=== PATIENT | male | born 1965 | race Caucasian/White ===

== ENCOUNTER 2021-07-17 10:57 | Inpatient (IN) | payer OTHER ==
[~2021-07-17] VITALS: Ht 160 cm; Wt 67.3 kg
[2021-07-17] MEDS ORDERED: ONDANSETRON HCL 4MG/2ML INJ IV ONE (11:30)
[2021-07-17] MEDS ORDERED: SODIUM CHLORIDE 0.9% 1,000 ML IV ONE (11:30)
[2021-07-17 12:21] LABS: BASOPHILS % 0.2 % (0.0-2.0); HEMATOCRIT. 46.7 % (42.0-52.0); HEMOGLOBIN. 15.6 g/dL (14.0-18.0); MEAN CORPUSCULAR HEMOGLOBIN 29.5 pg (28.0-32.0); MEAN CORPUSCULAR VOLUME 88.7 fL (80.0-94.0); MEAN PLATELET VOLUME 8.3 fl (7.4-10.4); MONOCYTES % 5.3 % (2.0-8.0); NEUTROPHILS % 86.5 % (40.0-76.0); PLATELET 176 x1000/uL (130-400); RED BLOOD CELL COUNT 5.27 mill/uL (4.7-6.1); RED CELL DISTRIBUTION WIDTH 12.7 % (11.6-14.6)
[2021-07-17 12:26] LABS: CHLORIDE 97 mEq/L (98-107)
[2021-07-17] MEDS ORDERED: SODIUM CHLORIDE 0.9% 1000ML BAG (SEPSIS BOLUS) IV ONE (13:00)
[2021-07-17] MEDS ORDERED: PIPERACILLIN/TAZ 3.375G PREMIX 50 ML IV ONE (13:00)
[2021-07-17] MEDS ORDERED: DEXAMETHASONE 10 MG/ML VIAL IV ONE (14:15)
[2021-07-17] MEDS ORDERED: DIPHENHYDRAMINE 50MG/ML VIAL IV PRN (14:30)
[2021-07-17] MEDS ORDERED: ONDANSETRON HCL 4MG/2ML INJ IV PRN (14:30)
[2021-07-17] MEDS ORDERED: CLONIDINE 0.1MG TABLET PO PRN (14:30)
[2021-07-17] MEDS ORDERED: AZITHROMYCIN 500MG/250ML 250 ML IV NR (15:00)
[2021-07-17] MEDS ORDERED: CEFTRIAXONE 1 G PREMIX 50 ML IV NR (15:00)
[2021-07-17] MEDS: ACETAMINOPHEN 325MG TABLET PO PRN ×2 (15:54→21:25)
[2021-07-17] MEDS ORDERED: ENOXAPARIN 40MG/0.4ML SYR SUBCUT SCH (16:00)
[2021-07-17 16:43] VITALS: BP 118/72
[2021-07-17 20:00] VITALS: BP 106/64
[2021-07-17] MEDS ORDERED: AZITHROMYCIN 500 MG in DEXT 5% WATER 250 ML IV NR (21:01)
[2021-07-17] MEDS: ENOXAPARIN 40MG/0.4ML SYR SUBCUT SCH (21:26)
[2021-07-17] MEDS: GUAIFENESIN 600MG ER TABLET PO SCH (21:26)
[2021-07-17] MEDS ORDERED: CEFTRIAXONE 1,000 MG in DEXTROSE 5% WATER 50 ML IV NR (22:00)
[2021-07-18] VITALS: BP 99/55
[2021-07-18 04:00] VITALS: BP 104/68
[2021-07-18 08:00] VITALS: BP 106/66
[2021-07-18 08:27] LABS: HEMATOCRIT. 44.1 % (42.0-52.0); HEMOGLOBIN. 14.8 g/dL (14.0-18.0); MEAN CORPUSCULAR HEMOGLOBIN 29.9 pg (28.0-32.0); MEAN CORPUSCULAR VOLUME 89.1 fL (80.0-94.0); MEAN PLATELET VOLUME 8.2 fl (7.4-10.4); PLATELET 173 x1000/uL (130-400); RED BLOOD CELL COUNT 4.96 mill/uL (4.7-6.1); RED CELL DISTRIBUTION WIDTH 12.6 % (11.6-14.6)
[2021-07-18] MEDS: GUAIFENESIN 600MG ER TABLET PO SCH ×2 (08:28→20:25)
[2021-07-18] MEDS: DEXAMETHASONE 10 MG/ML VIAL IV SCH (08:28)
[2021-07-18 08:41] LABS: CHLORIDE 107 mEq/L (98-107)
[2021-07-18] MEDS ORDERED: AZITHROMYCIN 500 MG in DEXT 5% WATER 250 ML IV SCH (09:00)
[2021-07-18] MEDS: CEFTRIAXONE 1,000 MG in DEXTROSE 5% WATER 50 ML IV SCH (09:42)
[2021-07-18 12:00] VITALS: BP 95/60
[2021-07-18] MEDS ORDERED: POLYETHYLENE GLYCOL 3350 (17GM) 1 DOSE PACK PO PRN (12:00)
[2021-07-18 13:45] LABS: PLATELET ESTIMATE NORMAL
[2021-07-18 16:00] VITALS: BP 99/66
[2021-07-18 20:00] VITALS: BP 103/67
[2021-07-18] MEDS: ENOXAPARIN 40MG/0.4ML SYR SUBCUT SCH (20:26)
[2021-07-18] MEDS: ACETAMINOPHEN 325MG TABLET PO PRN (20:33)
[2021-07-19] VITALS: BP 114/72
[2021-07-19 04:00] VITALS: BP 103/54
[2021-07-19 07:57] LABS: INR 1.1; PROTHROMBIN TIME 11.6 sec (9.6-11.0)
[2021-07-19 08:00] VITALS: BP_SYST 52
[2021-07-19] MEDS: GUAIFENESIN 600MG ER TABLET PO SCH ×2 (09:08→21:06)
[2021-07-19] MEDS: AZITHROMYCIN 500 MG in DEXT 5% WATER 250 ML IV SCH (09:08)
[2021-07-19] MEDS: DEXAMETHASONE 10 MG/ML VIAL IV SCH (09:08)
[2021-07-19] MEDS: CEFTRIAXONE 1,000 MG in DEXTROSE 5% WATER 50 ML IV SCH (10:52)
[2021-07-19 12:00] VITALS: BP 104/70
[2021-07-19] MEDS ORDERED: ZOLPIDEM TARTRATE 5MG TABLET PO PRN (12:30)
[2021-07-19 16:00] VITALS: BP 107/65
[2021-07-19 20:00] VITALS: BP 93/55
[2021-07-19] MEDS: ENOXAPARIN 40MG/0.4ML SYR SUBCUT SCH (21:06)
[2021-07-20] VITALS: BP 99/60
[2021-07-20 04:00] VITALS: BP 106/66
[2021-07-20 07:17] LABS: HEMATOCRIT. 43.5 % (42.0-52.0); HEMOGLOBIN. 14.5 g/dL (14.0-18.0); MEAN CORPUSCULAR HEMOGLOBIN 29.5 pg (28.0-32.0); MEAN CORPUSCULAR VOLUME 88.4 fL (80.0-94.0); MEAN PLATELET VOLUME 8.2 fl (7.4-10.4); PLATELET 262 x1000/uL (130-400); RED BLOOD CELL COUNT 4.92 mill/uL (4.7-6.1)
[2021-07-20 07:36] LABS: CHLORIDE 109 mEq/L (98-107)
[2021-07-20 08:00] VITALS: BP 90/60
[2021-07-20] MEDS: AZITHROMYCIN 500 MG in DEXT 5% WATER 250 ML IV SCH (08:54)
[2021-07-20] MEDS: GUAIFENESIN 600MG ER TABLET PO SCH (08:55)
[2021-07-20] MEDS: DEXAMETHASONE 10 MG/ML VIAL IV SCH (08:55)
[2021-07-20] MEDS: CEFTRIAXONE 1,000 MG in DEXTROSE 5% WATER 50 ML IV SCH (09:04)
[2021-07-20 12:00] VITALS: BP 95/67
[2021-07-20] MEDS ORDERED: AZIT250T12 PO (12:26)
[2021-07-20] MEDS ORDERED: DEXA6TAB MT (12:28)
[2021-07-20 13:13] VITALS: BP 95/67
[2021-07-20 14:35] LABS: PLATELET ESTIMATE NORMAL
[2021-07-21] MEDS ORDERED: AZITHROMYCIN 500 MG TABLET PO SCH (09:00)
== END 2021-07-20 15:30 | disposition home or self-care (01) | DRG 720 ==
LOC: ER 11:28 → 7WST 14:15 → EDBEDREQTM 14:34 → EDBEDREQ 14:34 → ENRESERV 14:48
PROVIDERS: ADMIT Internal Medicine; ATTEND Internal Medicine
DX: A41.89 Other specified sepsis (principal); J96.01 Acute respiratory failure with hypoxia; J12.82 Pneumonia due to coronavirus disease 2019; E44.1 Mild protein-calorie malnutrition; R31.9 Hematuria, unspecified; U07.1 COVID-19; K92.1 Melena; E86.1 Hypovolemia; E87.1 Hypo-osmolality and hyponatremia; J20.8 Acute bronchitis due to other specified organisms; Z85.038 Personal history of other malignant neoplasm of large intestine; Z68.26 Body mass index [BMI] 26.0-26.9, adult
CPT/HCPCS: 36415; 71045; 80048; 80053; 82270; 82728; 83605; 83615; 84145; 84443; 84484; 85025; 86141; 87426; 87804; 93005; 99291; J0456; J0696; J1100; J1200; J1650; J2405; J2543; J7030; J7040; J7060; U0003; U0005